=== PATIENT | female | born 1985 | race Caucasian/White ===

== ENCOUNTER 2020-05-16 19:36 | Emergency (ER) | payer OTHER, SELFPAY ==
[2020-05-16 19:39] VITALS: BP 130/97; PULSE 88; RESP 18; TEMP 36.3; O2SAT 98
--- NOTE | 2020-05-16 19:58 | ED.SKABFB ---
HPI - Skin/Abscess/Foreign Bdy General Chief complaint: Skin/Abscess/Foreign Body Stated complaint: Abscess Time Seen by Provider: 05/16/20 19:52 History of Present Illness HPI narrative: Painful lump to the right antecubital fossa for quite some time. Getting large and more tender. Now red over the top. She believe that it started after injecting heroin and missing the vein. She has a similar lesion on the contralateral side, but it does not cause and pain. Related Data Allergies Allergy/AdvReac Type Severity Reaction Status Date / Time diphenhydramine Allergy Unknown Rash Verified 05/16/20 19:41 ziprasidone Allergy Unknown Rash Verified 05/16/20 19:41 Review of Systems Review of Systems: All systems reviewed & are unremarkable except as noted in HPI and below Constitutional: Constitutional: Denies fever(s) Cardiovascular: Cardiovascular: Denies chest pain Respiratory: Respiratory: Denies dyspnea Gastrointestinal: Gastrointestinal: Denies nausea Musculoskeletal: Musculoskeletal: Denies back pain Neurologic: Denies dizziness and Denies weakness [facility] Family History Family History (Updated 10/20/13 @ 07:13 by DOCTOR UNKNOWN) Father Hypertension Grandparent Hypertension Family history of malignant neoplasm of ovary Mother Family history of chronic obstructive pulmonary disease Social History Social History (Updated 05/23/20 @ 13:33 by Paolo Manzano MD) Second hand tobacco smoke exposure: No Alcohol intake: never Substance use: former Substance use type: heroin and IV drugs Gender identity (if verbalized by the patient): Female Sexual Orientation (if Verbalized by the Patient): Straight or Heterosexual Exam Const: General: healthy appearing, no acute distress and alert Orientation/consciousness: patient oriented x3 HENMT: Head: normal to inspection Neck: Neck: normal visual inspection and no lymphadenopathy Resp: Effort & Inspection: normal respiratory effort Auscultation: clear to auscultation bilaterally, no rales, no rhonchi and no wheezes Cardio: Jugular venous distension: no JVD Rate: regular rate Rhythm: regular rhythm Heart sounds: no murmurs GI: GI Palp: Yes Soft to palpation and No Tenderness to palpation present (GI) Skin: Other: 1 cm fluctuant nodule in right antecubital fossa with mild overlying erythema. 1 cm firm nodule in left AC with no tenderness and normal overlying skin Neuro: General: patient oriented x3 and moves all extremities Speech: normal speech Gait exam (Neuro): Normal gait present Extrem: General: no edema Psych: Appearance: well kempt Affect: normal affect Course Vital Signs Vital signs: Vital Signs Temperature 36.3 C L 05/16/20 19:39 Pulse Rate 88 05/16/20 19:39 Respiratory Rate 18 05/16/20 19:39 Blood Pressure 130/97 H 05/16/20 19:39 Pulse Oximetry 98 05/16/20 19:39 Temperature 36.3 C L 05/16/20 19:39 Pulse Rate 88 05/16/20 19:39 Respiratory Rate 18 05/16/20 19:39 Blood Pressure 130/97 H 05/16/20 19:39 Pulse Oximetry 98 05/16/20 19:39 Procedures Abscess I/D upper extremity: Side (if applicable): right Local Anesthetic: lidocaine 1% and with epi Amount of anesthesia used (mL): 3 Technique: incised with #11 blade Amount of fluid expressed (mL): 2 Irrigation: Yes Packing used?: none I&D Results: Pus MDM - Skin/Abscess/Foreign Bdy MDM Narrative Medical decision making narrative: I&D performed. Antibiotics ordered. She left prior to getting antibiotic or discharge papers. Differential Diagnosis Differential diagnosis: Likely abscess of skin or subcutaneous tissue and cellulitis Medical Records Attestation: I reviewed the patient's medical records. Discharge Plan Discharge Clinical Impression: Abscess of skin or subcutaneous tissue Patient Disposition: Home, Self-Care Condition: Stable Instructions: Antibiotic Form, Absce
--- NOTE | 2020-05-16 20:50 | PC.NURSE ---
Patient not in room or waiting room-patient left without receiving medications or discharge paperwork. member of parliament made aware and will try and contact patient
--- NOTE | 2020-05-16 20:59 | PC.NURSE ---
called the phone number on file for patient, left message to call us back. person called back and we have the incorrect number on file for patient. i tried to call her emergency contact. pt left without d/c instructions or prescriptions.
== END 2020-05-16 20:50 | disposition home or self-care (01) ==
PROVIDERS: Emergency Provider Emergency Medicine
DX: L02.413 Cutaneous abscess of right upper limb (principal)
CPT/HCPCS: 10060; 99283

== ENCOUNTER 2020-11-05 13:41 | Emergency (ER) | payer OTHER, SELFPAY ==
--- NOTE | ~2020-11-05 | CT_ITS ---
EXAMINATION: CT brain wo con INDICATION: Syncope, headache COMPARISON: None TECHNIQUE: Standard unenhanced head CT. The dose-length product (DLP) was 605.33 mGy-cm. The mA was a djusted according to patient size. Iterative reconstruction technique was employed. FINDINGS: There is no intracranial hemorrhage, acute infarction, or abnormal mass lesion. The ventric les are normal. There is no abnormal mass effect or midline shift. The mcadams-white matter differentiat ion is normal. The basal cisterns are patent. The orbits are normal. The paranasal sinuses, mastoids and calvarium are normal. IMPRESSION: 1. No acute intracranial abnormality. Reviewed, dictated and finalized at location A.
--- NOTE | ~2020-11-05 | XR_ITS ---
EXAMINATION: XR chest 2V DATE: 11/05/2020 14:38 INDICATION: Syncope and shortness of breath TECHNIQUE: AP and lateral views of the chest are obtained. COMPARISON: None available FINDINGS: The lungs are free of acute opacities. There is no pleural effusion or pneumothorax. The ca rdiomediastinal silhouette is normal. The visualized bones and soft tissues are unremarkable. IMPRESSION: 1. No acute cardiopulmonary abnormality. Reviewed, dictated and finalized at location A.
[2020-11-05 13:50] VITALS: BP 136/86; PULSE 110; RESP 18; TEMP 36.4; O2SAT 99
--- NOTE | 2020-11-05 14:02 | ECG_ITS ---
Measurements Intervals [place] Rate: 115 P: 9 CO: 145 QRS: -4 QRSD: 93 T: 21 QT: 333 QTc: 462 Interpretive Statements SINUS TACHYCARDIA BASELINE ARTIFACT- V1, V3 ABNORMAL ECG Electronically Signed On 11-05-2020 14:06:01 CDT by Chao Nguyen D.O.
--- NOTE | 2020-11-05 14:16 | ED.SYNCOPE ---
HPI - Syncope General Chief Complaint: Syncope Stated Complaint: syncope, headache Time Seen by Provider: 11/05/20 14:02 Source: patient Mode of arrival: ambulatory Limitations: no limitations History of Present Illness HPI narrative: This is a 34-year-old female that presents to the emergency department for syncopal episode earlier today. Reports she was in group therapy and had been having a migraine today. Reports her pain was starting to get really bad. It was making her feel lightheaded and she then passed out. Reports she was seated while this happened. Does report history of similar syncopal episodes in the past. She was evaluated at an outside ED for this a couple weeks ago and discharged. 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 Denies fever, vision changes, vomiting, numbness, or weakness. Related Data Home Medications Medication Instructions Recorded Confirmed hydroxyzine HCl 11/05/20 modafinil mg 11/05/20 11/05/20 trazodone 11/05/20 venlafaxine mg PO 11/05/20 venlafaxine mg PO 11/05/20 Allergies Allergy/AdvReac Type Severity Reaction Status Date / Time diphenhydramine Allergy Unknown Rash Verified 05/16/20 19:41 ziprasidone Allergy Unknown Rash Verified 05/16/20 19:41 Review of Systems Review of Systems: CONSTITUTIONAL: Denies fever EYES: Denies visual changes GASTROINTESTINAL: Denies vomiting NEUROLOGIC: Reports headache. Denies numbness, or weakness. All systems reviewed & are unremarkable except as noted in HPI and below PMFSH Past Medical History Medical History (Updated 11/05/20 @ 17:33 by Carlie Portillo PA-C) History of anxiety History of depression Family History Family History (Updated 10/20/13 @ 07:13 by DOCTOR UNKNOWN) Father Hypertension Grandparent Hypertension Family history of malignant neoplasm of ovary Mother Family history of chronic obstructive pulmonary disease Social History Social History (Updated 05/23/20 @ 13:33 by Paolo Manzano MD) Second hand tobacco smoke exposure: No Alcohol intake: never Substance use: former Substance use type: heroin and IV drugs Gender identity (if verbalized by the patient): Female Sexual Orientation (if Verbalized by the Patient): Straight or Heterosexual Exam Narrative: GENERAL: Well-appearing, obese, and in no acute distress. HEAD: Normocephalic, atraumatic. EYES: PERRLA and EOMI. ENT: Nares clear, no rhinorrhea or epistaxis. Mucous membranes moist. Oropharynx without tonsillar hypertrophy exudate or other lesions. Bilateral TMs pearly mcadams non-bulging NECK: Supple. No adenopathy or masses. CHEST: Clear to auscultation. No respiratory distress. No wheezes rales or rhonchi HEART: Regular rate and rhythm. No murmur heard. Normal peripheral pulses. EXTREMITIES: Normal range of motion. No edema. Strength equal in bilateral upper and lower extremities (5/5) SKIN: Warm, dry, no rash. NEURO: No focal deficits. Alert and oriented x3. Cranial nerves II through XII grossly intact PSYCH: Normal mood and affect Course Vital Signs Vital signs: Vital Signs Temperature 97.5 F L 11/05/20 13:50 Pulse Rate 110 H 11/05/20 13:50 Respiratory Rate 18 11/05/20 13:50 Blood Pressure 136/86 11/05/20 13:50 Pulse Oximetry 99 11/05/20 13:50 Temperature 97.5 F L 11/05/20 13:50 Pulse Rate 110 H 11/05/20 13:50 Respiratory Rate 18 11/05/20 13:50 Blood Pressure 136/86 11/05/20 13:50 Pulse Oximetry 99 11/05/20 13:50 MDM - Syncope MDM Narrative Medical decision making narrative: Patient presents emergency department after syncopal episode today. Seems consistent with likely a vasovagal syncope. Her vitals are stable. She is afebrile and nontoxic-appearing. She is neurologically intact. CBC and metabolic panel without concerning findings. EKG without concerning changes and baseline troponin is negative. CT scan of the brain is normal. Chest x-ray wi
[2020-11-05 15:19] LABS: Basophils Absolute Auto 0.1 K/mm3 (0.0-0.1); Basophils Percent Auto 0.7 % (0.2-1.2); Eosinophils Absolute Auto 0.2 K/mm3 (0-0.3); Eosinophils Percent Auto 1.6 % (0-4.4); Hematocrit 40.2 % (37.0-47.0); Hemoglobin 13.3 g/dL (12.0-15.0); Immature Granulocyte Absolute 0.03 K/mm3 (0.00-0.031); Immature Granulocyte Percent A 0.3 % (0-0.5); Lymphocytes Absolute Auto 2.34 K/mm3 (0.9-3.2); Mean Corpuscular HGB Conc 33.1 g/dl (32-36); Mean Corpuscular Hemoglobin 30.8 pg (26-34); Mean Corpuscular Volume 93.1 fl (80-100); Mean Platelet Volume 9.7 fl (7.4-10.4); Monocytes Absolute Auto 0.9 K/mm3 (0.1-0.6); Monocytes Percent Auto 9.5 % (2.6-8.5); Neutrophils Absolute Auto 6.2 K/mm3 (1.3-6.7); Neutrophils Percent Auto 63.9 % (45.5-73.1); Platelet Count Result 270 k/mm3 (150-375); Red Blood Count 4.32 M/mm3 (4.2-5.4); Red Cell Distribution Width 13.7 % (11.5-14.5); White Blood Count 9.8 K/mm3 (4.5-10.0)
[2020-11-05 15:30] LABS: Anion Gap 8 mmol/L (8-16); Blood Urea Nitrogen 10 mg/dL (7-17); Calcium 9.1 mg/dL (8.4-10.2); Carbon Dioxide 23 mmol/L (22-30); Chloride 108 mmol/L (98-107); Estimated CRCL calculation 100 ml/min; Estimated Glomerular Filt Rate > 60; Glucose 99 mg/dL (65-110); Sodium 139 mmol/L (137-145)
[2020-11-05] MEDS: SODIUM CHLORIDE 0.9% IV 1,000 ML 999 ML IV CONT (15:31)
[2020-11-05 15:36] LABS: INR 0.9
[2020-11-05 15:37] LABS: Partial Thromboplastin Time 29.3 SECONDS (22.3-36.8)
[2020-11-05 15:42] LABS: Troponin I < 0.012 ng/mL (0.000-0.034)
[2020-11-05 17:32] VITALS: BP 119/90; BP 121/85; BP 138/78; PULSE 83; PULSE 97
--- NOTE | 2020-11-05 17:35 | PC.NURSE ---
patient angry and yelling in room using foul language. accused this rn of ripping out her iv angry that Pa would not provide a pronted copy of everything that was done today
== END 2020-11-05 18:03 | disposition home or self-care (01) ==
PROVIDERS: Physician Assistant; Emergency Provider Emergency Medicine; PCP Nurse Practitioner
DX: R55 Syncope and collapse (principal); F41.9 Anxiety disorder, unspecified; F32.9 Major depressive disorder, single episode, unspecified; R00.0 Tachycardia, unspecified
CPT/HCPCS: 36415; 70450; 71046; 80048; 84484; 85025; 85610; 85730; 93005; 96361; 96365; 99284; J0131; J7030

== ENCOUNTER 2020-11-23 08:42 | Outpatient (CLI) | payer OTHER, SELFPAY ==
--- NOTE | 2020-11-23 | ECHO_ITS ---
Patient Info Name: Debo Torres Age: 35 years : 1985 Gender: Female Ht: 61 in Wt: 249 lbs BSA: 2.28 m2 HR: 91 bpm BP: 121 / 78 mmHg Technical Quality: Good Exam Date: 11/23/2020 8:59 AM Exam Location: [facility] Patient Status: Outpatient Admit Date: 11/23/2020 Staff Ordering Physician: Beverley, Reginaldo Quinn APRN Assistive Technology Trainer: Lucero Patterson RDCS Attending Provider: Beverley, Reginaldo Quinn APRN Referring Physician: Tommie SIERRA; Exam Type: CA echo doppler color flow Study Info Indications - tachycardia Complete two-dimensional, color flow and Doppler transthoracic echocardiogram is performed. Summary 1. Complete two-dimensional, color flow and Doppler transthoracic echocardiogram is performed. 2. Left ventricular chamber dimension is normal. 3. Left ventricular systolic function is normal, estimated at 60-65%. 4. The left ventricular diastolic function is normal. 5. Global longitudinal strain is slightly abnormal at -16.6%. 6. There is trace tricuspid valve regurgitation. 7. No pulmonary hypertension, estimated pulmonary arterial systolic pressure is 25 mmHg. Left Ventricle Tissue doppler is not performed. Global longitudinal strain is slightly abnormal at -16.6%. Left ventricular chamber dimension is normal. Left ventricular systolic function is normal, estimated at 60-65%. The left ventricular diastolic function is normal. Right Ventricle Right ventricular chamber dimension is normal. Right ventricular systolic function is normal. Left Atria Left atrial chamber dimension is normal. Right Atria Right atrial chamber dimension is normal. Aortic Valve The aortic valve is trileaflet. There is no aortic valve stenosis. There is no aortic valve regurgitation. Pulmonic Valve There is no pulmonic regurgitation. Mitral Valve There is no mitral valve stenosis. There is no mitral valve regurgitation. Tricuspid Valve There is trace tricuspid valve regurgitation. No pulmonary hypertension, estimated pulmonary arterial systolic pressure is 25 mmHg. Pericardium/Pleural There is no pericardial effusion. Inferior Vena Cava Normal inferior vena cava with >50% collapse upon inspiration consistent with normal right atrial pressure, 5 mmHg. Aorta The aortic root size at the sinus of Valsalva is normal. Left Ventricular Outflow Tract Name Value Normal LVOT 2D LVOT Diameter 2.0 cm LVOT Doppler LVOT Peak Gradient 6 mmHg LVOT Mean Gradient 4 mmHg LVOT VTI 25 cm LVOT VTI/AV VTI Ratio 0.9 LVOT Stroke Volume 81 ml LVOT CO 18.1 l/min LVOT CI 8.0 l/min/m2 Pulmonic Valve Name Value Normal PV Doppler
== END 2020-11-23 08:43 | disposition home or self-care (01) ==
PROVIDERS: PCP Nurse Practitioner; Visit Provider Nurse Practitioner
DX: I51.7 Cardiomegaly (principal)
CPT/HCPCS: 93306

== ENCOUNTER 2021-03-05 11:45 | Emergency (ER) | payer OTHER, SELFPAY ==
--- NOTE | ~2021-03-05 | CT_ITS ---
EXAMINATION: CTA chest PE protocol EXAM DATE: 03/05/2021 15:09 INDICATION: Shortness of breath. COVID positive. Cough. TECHNIQUE: Spiral CTA of the chest (pulmonary arteries) was performed with 100cc Omnipaque 350 intra venous contrast injection. Images were acquired during the pulmonary arterial phase. Coronal maxim um intensity projection 3D-reconstructions were created by the technologist on dedicated workstation. Axial, coronal and sagittal reformatted images were reviewed. The dose-length product (DLP) for th is examination was 908.36 mGy-cm. The exposure was tailored according to patient size (auto mA expo sure control), and iterative reconstruction (ASIR) was used as additional dose reduction technique. C orrelation is made to chest x-ray same date. FINDINGS: Pulmonary arteries are well opacified and without intraluminal filling defects. No thora cic aortic dissection. The lungs are clear. There are no pleural or pericardial effusions. Trach eobronchial tree is patent. There is no mediastinal, hilar or axillary lymphadenopathy. There is no pneumothorax. Heart normal in size. No evidence of coronary arterial calcification. Upper abd omen is unremarkable. There is thoracic spondylosis without osteoblastic or osteolytic lesions iden tified. IMPRESSION: No pulmonary emboli or acute cardiopulmonary findings. Reviewed, dictated and finalized at location A. MGR
[2021-03-05 11:53] VITALS: BP 127/86; PULSE 98; RESP 18; TEMP 36.2; O2SAT 99
--- NOTE | 2021-03-05 12:50 | ECG_ITS ---
Measurements Intervals [place] Rate: 92 P: 49 VT: 152 QRS: 79 QRSD: 95 T: 40 QT: 342 QTc: 424 Interpretive Statements SINUS RHYTHM BASELINE ARTIFACT- I, AVR, V1 NORMAL ECG Electronically Signed On 03-05-2021 13:18:47 CORE DRILLER HELPER by Chao Nguyen D.O.
[2021-03-05] MEDS: KETOROLAC 30 MG/ML VIAL (*BKC) IM (12:58)
[2021-03-05 14:04] LABS: Troponin I < 0.012 ng/mL (0.000-0.034)
--- NOTE | 2021-03-05 14:27 | ED.GENADULT ---
HPI - General Adult General Chief complaint: Shortness of Breath/Dyspnea Stated complaint: COVID+ 03/03 PNA SOB Time Seen by Provider: 03/05/21 12:36 Source: patient Mode of arrival: ambulatory Limitations: no limitations History of Present Illness HPI narrative: Patient is a 35-year-old female with chief complaint chest pain with inspiration that has worsened over the past few days. Patient states the pain is to the center of her chest. She reports minimal cough. She denies syncope, palpitations. She reports he tested positive for COVID on Thursday. Patient denies being on anticoagulants. She denies history of DVT or PEs. Patient denies chance of due to tubal ligation. Related Data Home Medications Medication Instructions Recorded Confirmed hydroxyzine HCl 11/05/20 modafinil mg 11/05/20 11/05/20 trazodone 11/05/20 venlafaxine mg PO 11/05/20 venlafaxine mg PO 11/05/20 albuterol mcg INHALATION 03/05/21 naltrexone microspheres [Vivitrol] 380 mg IM ONCE 03/05/21 03/05/21 Allergies Allergy/AdvReac Type Severity Reaction Status Date / Time diphenhydramine Allergy Unknown Rash Verified 03/05/21 11:53 ziprasidone Allergy Unknown Rash Verified 03/05/21 11:53 Review of Systems Review of Systems: CONSTITUTIONAL: Denies fever, chills, or sweats. EYES: Denies visual changes, redness, or discharge. ENT: Denies rhinorrhea, congestion, sore throat, or otalgia. CARDIOVASCULAR: Reports chest pain with exertion denies palpitations, or edema. RESPIRATORY: Denies cough or dyspnea. GASTROINTESTINAL: Denies abdominal pain, nausea, vomiting, or diarrhea. GENITOURINARY: Denies dysuria or hematuria. SKIN: Denies rash or itching. MUSCULOSKELETAL: Denies back pain, joint pain, or myalgia. NEUROLOGIC: Denies headache, numbness, dizziness, or weakness. PSYCHIATRIC: Denies anxiety or depression. [facility] Past Medical History Medical History (Updated 03/05/21 @ 16:04 by Frederick Espinosa PA-C) History of anxiety History of depression Family History Family History (Updated 10/20/13 @ 07:13 by DOCTOR UNKNOWN) Father Hypertension Grandparent Hypertension Family history of malignant neoplasm of ovary Mother Family history of chronic obstructive pulmonary disease Social History Social History (Updated 05/23/20 @ 13:33 by Paolo Manzano MD) Second hand tobacco smoke exposure: No Alcohol intake: never Substance use: former Substance use type: heroin and IV drugs Gender identity (if verbalized by the patient): Female Sexual Orientation (if Verbalized by the Patient): Straight or Heterosexual Exam Narrative: GENERAL: Well-appearing, well-nourished, and in no acute distress. HEAD: Normocephalic, atraumatic. EYES: PERRLA and EOMI. CHEST: Clear to auscultation. No respiratory distress. No wheezes rales or rhonchi. Satting 99% on room air. HEART: Regular rate and rhythm. No murmur heard. Normal peripheral pulses. EXTREMITIES: Normal range of motion. No leg pain. SKIN: Warm, dry, no rash. NEURO: No focal deficits. Alert and oriented x3. PSYCH: Normal mood and affect. Course Vital Signs Vital signs: Vital Signs Temperature 97.1 F L 03/05/21 11:53 Pulse Rate 98 03/05/21 11:53 Respiratory Rate 18 03/05/21 11:53 Blood Pressure 127/86 03/05/21 11:53 Pulse Oximetry 99 03/05/21 11:53 Temperature 97.1 F L 03/05/21 11:53 Pulse Rate 90 03/05/21 15:10 Respiratory Rate 20 03/05/21 15:10 Blood Pressure 111/64 03/05/21 15:10 Pulse Oximetry 100 03/05/21 15:10 Medical Decision Making [facility] Narrative Medical decision making narrative: Patient is not hypoxic. Patient vital signs are stable. Patient troponin is negative. Patient CT is negative for pulmonary embolism. Patient has been instructed to go home and take anti-inflammatory medications and Tylenol for her symptoms. Patient has been instructed to follow-up with her primary care if she has any additional questions. [place]
[2021-03-05] MEDS: FAMOTIDINE 20 MG/2 ML VIAL IV PUSH (14:49)
[2021-03-05] MEDS: methylPREDNISolone SOD SUCC 125 MG VIAL IV PUSH (15:03)
[2021-03-05 15:10] VITALS: BP 111/64; PULSE 90; RESP 20; O2SAT 100
--- NOTE | 2021-03-05 15:10 | PC.NURSE ---
upon returning from ct pt noted to be anxious. pt tachypneic. cool rag applied to head and pt talked down.
[2021-03-05 15:14] LABS: Estimated CRCL calculation 84 ml/min; Estimated Glomerular Filt Rate > 60
== END 2021-03-05 16:15 | disposition home or self-care (01) ==
PROVIDERS: Physician Assistant; Emergency Provider Emergency Medicine; PCP Nurse Practitioner
DX: U07.1 COVID-19 (principal); R07.89 Other chest pain; F41.9 Anxiety disorder, unspecified; F32.A Depression, unspecified
CPT/HCPCS: 36415; 71275; 81025; 84484; 85380; 93005; 96372; 96374; 96375; 99284; J1885; J2930; Q9967

== ENCOUNTER 2022-03-03 13:45 | Outpatient (CLI) | payer OTHER, SELFPAY ==
--- NOTE | ~2022-03-03 | XR_ITS ---
EXAMINATION: XR chest 2V Exam Date/Time: 03/03/2022 14:30 MARRIAGE AND FAMILY THERAPIST HISTORY: BRONCHITIS, HX COPD Comparison: 11/05/2020, CTPA 03/05/2021. RESULT: Lines, tubes, and devices: None. Lungs and pleura: Clear. Cardiomediastinal silhouette: Stable. Other: No acute osseous or upper abdominal finding. IMPRESSION: No acute cardiopulmonary process. Reviewed, dictated and finalized at location K. IAGE AND FAMILY THERAPIST
== END 2022-03-03 13:46 | disposition home or self-care (01) ==
PROVIDERS: PCP Nurse Practitioner; Visit Provider Nurse Practitioner
DX: J40 Bronchitis, not specified as acute or chronic (principal)
CPT/HCPCS: 71046

== ENCOUNTER 2022-03-04 13:16 | Outpatient (CLI) | payer OTHER, SELFPAY ==
--- NOTE | ~2022-03-04 | NM_ITS ---
EXAMINATION: NM pulmonary perfusion DATE: 03/04/2022 14:10 INDICATION: Bronchitis. TECHNIQUE: 5.089 mCi Tc-99m MAA was administered intravenously for perfusion images. Scintigraphic i mages of the chest were obtained. COMPARISON: Chest 2 views 03/03/2022, chest CT 03/05/2021 FINDINGS: Perfusion images show small defects in the lower lobes. IMPRESSION: 1. Pulmonary embolism absent (low probability). Reviewed, dictated and finalized at location A. WORKER
== END 2022-03-04 13:17 | disposition home or self-care (01) ==
PROVIDERS: PCP Nurse Practitioner; Visit Provider Nurse Practitioner
DX: J40 Bronchitis, not specified as acute or chronic (principal)
CPT/HCPCS: 78580; A9540